=== PATIENT | male | born 1960 | race Caucasian/White ===

== ENCOUNTER 2018-12-02 08:55 | Day surgery (SDC) | payer BC ==
[~2018-12-02 08:55] MED LIST: Lactated Ringers 1,000 ML IV SCH
--- NOTE | 2018-12-02 09:44 | PCM.PREANE ---
Preanesthetic Assessment - Anesthesia/Transfusion/Family Hx Anesthesia History: Prior Anesthesia Without Reaction Family History of Anesthesia Reaction: No Transfusion History: No Prior Transfusion(s) Intubation History: Unknown - Review of Systems General: No Symptoms Pulmonary: No Symptoms Cardiovascular: No Symptoms Gastrointestinal: Abdominal Pain, Difficulty Swallowing, Hematochezia Neurological: No Symptoms Other: Reports: None - Physical Assessment NPO Status Date: 12/02/18 NPO Status Time: 06:00 O2 Sat by Pulse Oximetry: 98 Respiratory Rate: 15 Vital Signs: Last Vital Signs Temp 36.4 C 12/02/18 09:20 Pulse 57 L 12/02/18 09:20 Resp 15 12/02/18 09:20 BP 132/85 12/02/18 09:20 Pulse Ox 98 12/02/18 09:20 Height: 1.85 m Weight: 95.708 kg ASA Class: 2 Mental Status: Alert & Oriented x3 Airway Class: Mallampati = 2 Dentition: Reports: Normal Dentition Thyro-Mental Finger Breadths: 3 Mouth Opening Finger Breadths: 3 ROM/Head Extension: Full Lungs: Clear to Auscultation, Normal Respiratory Effort Cardiovascular: Regular Rate, Regular Rhythm - Allergies Allergies/Adverse Reactions: Allergies Allergy/AdvReac Type Severity Reaction Status Date / Time bee venom protein (honey bee) Allergy Anaphylactic Verified 11/29/18 08:37 Shock codeine Allergy Itching Verified 11/29/18 08:37 - Blood Blood Available: No - Anesthesia Plan Pre-Op Medication Ordered: None - Acknowledgements Anesthesia Type Planned: MAC Pt an Appropriate Candidate for the Planned Anesthesia: Yes Alternatives and Risks of Anesthesia Discussed w Pt/Guardian: Yes Pt/Guardian Understands and Agrees with Anesthesia Plan: Yes PreAnesthesia Questionnaire HEENT History: Reports: Other (See Below) Other HEENT History: wears glasses Cardiovascular History: Reports: Hypertension Respiratory History: Reports: None Gastrointestinal History: Reports: GERD, Other (See Below) Other Gastrointestinal History: hx C-diff Genitourinary History: Reports: None Musculoskeletal History: Reports: Fracture Other Musculoskeletal History: hx fx arm, collarbone, toe and finger Neurological History: Reports: None Psychiatric History: Reports: Anxiety, Depression Endocrine/Metabolic History: Reports: Hypothyroidism Hematologic History: Reports: None Immunologic History: Reports: None Oncologic (Cancer) History: Reports: None Dermatologic History: Reports: None - Past Surgical History Head Surgeries/Procedures: Reports: None HEENT Surgical History: Reports: Tonsillectomy Cardiovascular Surgical History: Reports: None Respiratory Surgical History: Reports: None GI Surgical History: Reports: None Female Surgical History: Reports: None Neurological Surgical History: Reports: None Musculoskeletal Surgical History: Reports: Shoulder Surgery Other Musculoskeletal Surgeries/Procedures:: mell shoulder surgery Oncologic Surgical History: Reports: None Dermatological Surgical History: Reports: None - SUBSTANCE USE Smoking Status *Q: Never Smoker Recreational Drug Use History: No - HOME MEDS Home Medications: Home Meds Ascorbic Acid [Vitamin C] 500 mg PO DAILY 11/29/18 [History] L.acidoph,Paracasei, B.lactis [Probiotic] 1 tab PO DAILY 11/29/18 [History] Levothyroxine Sodium [Synthroid] 150 mcg PO DAILY 11/29/18 [History] Lisinopril 20 mg PO DAILY 11/29/18 [History] Metoprolol Succinate 100 mg PO BID 11/29/18 [History] Potassium Chloride 10 meq PO DAILY 11/29/18 [History] Zolpidem Tartrate 10 mg PO BEDTIME 11/29/18 [History] hydroCHLOROthiazide [Hydrochlorothiazide] 25 mg PO DAILY 11/29/18 [History] - CURRENT (IN HOUSE) MEDS Current Meds: Current Medications Lactated Ringer's (Ringers, Lactated) 1,000 mls @ 125 mls/hr IV ASDIRECTED [facility] Last Admin: 12/02/18 09:29 Dose: 125 mls/hr
[2018-12-02] MEDS ORDERED: fentaNYL 100 MCG/2 ML SDV ONE (11:42)
[2018-12-02] MEDS ORDERED: Midazolam 1 MG/ML 2 ML SDV ONE (11:42)
[2018-12-02] MEDS ORDERED: Propofol 200 MG/20 ML SDV ONE (11:51)
--- NOTE | 2018-12-02 12:29 | PCM.OPNOTE ---
- General Post-Op/Procedure Note Date of Surgery/Procedure: 12/02/18 Operative Procedure(s): egd w bx. colonoscopy w bx Findings: see dict [id number] Pre Op Diagnosis: BRBPR Post-Op Diagnosis: Same Anesthesia Technique: Moderate Sedation Primary Surgeon: Ko Izaguirre Pathology: egd bx colon at 25 when scope coming out, hyperemic, and rectal polyp 2mm Complications: None Condition: Good
--- NOTE | 2018-12-02 13:04 | PCM48HPAN ---
Post Anesthesia Note - EVALUATION WITHIN 48HRS OF ANESTHETIC Vital Signs in Normal Range: Yes Patient Participated in Evaluation: Yes Respiratory Function Stable: Yes Airway Patent: Yes Cardiovascular Function Stable: Yes Hydration Status Stable: Yes Pain Control Satisfactory: Yes Nausea and Vomiting Control Satisfactory: Yes Mental Status Recovered: Yes Resp Rate: 12 - COMMENTS/OBSERVATIONS Free Text/Narrative:: no anesthesia problems
--- NOTE | 2018-12-02 16:21 | OR ---
SURGEON: Ko Izaguirre MD DATE OF PROCEDURE: 12/02/2018 PREOPERATIVE DIAGNOSIS: Bright red blood per rectum. POSTOPERATIVE DIAGNOSES: Esophagogastroduodenoscopy diagnosis is duodenitis and colonoscopy diagnosis is polyp and hemorrhoids. DESCRIPTION OF PROCEDURE: EGD: The patient was taken to the endoscopy room, and with the RU[employer] MACHINE OPERATOR, Diprivan was administered. A well-lubricated EGD scope was gently inserted through the oropharynx, down the esophagus, passing through the gastroesophageal junction, into the stomach. The mucosa was examined upon the passage. Any etiology will be noted. Once in the stomach, we continued to advance to the distal antrum, passed through the pylorus into the second portion of the duodenum. Again, the mucosa was examined for any abnormality and etiology. The scope was then retrieved back to the stomach and then retroflexed to look at the fundus of the stomach. If a biopsy was indicated, we will biopsy the antrum, body, and gastroesophageal junction. The air will be sucked out while the scope is retrieved to reduce the patient's discomfort. The patient tolerated the procedure well. There were no intraoperative complications. Dr. Izaguirre was present through the whole procedure. Prior to surgery, a time-out had been called, the patient identified, procedure identified and antibiotic administered. Colonoscopy: The patient was taken to the endoscopy room. A time out was called, patient identified, and procedure identified. Diprivan was then administrated. Patient went from awake to sleep, hearing doctor talking or door closing is normal. Perineum inspection and digital examination were then performed. A well-lubricated colonoscope was gently inserted through the rectum, advanced past the rectosigmoid junction, the descending colon, splenic flexure, transverse colon, hepatic flexure, ascending colon, arrived to the cecum. Cecum was identified as dictated in the finding. Then the scope was carefully withdrawn while attention was paid to the mucosal surface for any abnormality. Air will be sucked out during the scope withdrawal. At the rectum, retroflexed to examine any rectal diseases, fistula or hemorrhoids. During mucosal examination, abnormality or polyp was noted; picture taken and biopsy performed. Patient tolerated procedure well. There were no intraoperative complications, and Dr. Izaguirre was present throughout the whole procedure. FINDINGS: EGD findings: 1. The patient is easily sedated with [employer] MACHINE OPERATOR and Diprivan, the patient is soundly snoring. 2. Oropharynx and proximal esophagus are free of disease. Distal esophagus at GE junction at 40 shows mild salmon-color change, consistent with mild acid reflux. Stomach rugae normal in appearance and there is no food, blood, or bile observed. Antrum is normal in appearance. Duodenum has inflammation and consistent with duodenitis. No blood, no ulcer observed. Scope retrieved back to the stomach. Retroflexed look at the stomach, there was no hiatal hernia. Biopsy done at antrum, body, GE junction at 40 and sucked out the gas while scope coming out. Colonoscopy findings: 1. The patient is easily sedated with [employer] MACHINE OPERATOR and Diprivan, the patient is soundly snoring. 2. Bowel prep is average with large amount of opaque liquid stool and study is compromised. 3. Colon is rather straightforward. Cecum indicated by ileocecal fold, one-to- one indentation, light emittance, appendiceal orifice. Mucosa examined upon scope pulling out. The patient has moderate diverticulosis on the left colon. No signs or symptoms of diverticulitis and there is a small polyp at the rectum, 2 mm, biopsy done. Other than that, there is a small slightly elevated and hyperemic area at distant 25, and we biopsied that. The hyperemic patch is about 5 to 6 mm. Other than that, no inflammation, stricture, AV malformation, bleeding, ulceration observed. The patient has mild internal hemorrhoids, no external hemorrhoids. PLAN: The patient would benefit from repeat colonoscopy 10 years from today or if clinically indicated otherwise or if the biopsy pathology indicated otherwise. URIAH / AMA /[id number]
== END 2018-12-02 13:14 | disposition home or self-care (01) ==
LOC: MW.SDS 08:55
PROVIDERS: ATTEND Surgery
DX: K62.5 Hemorrhage of anus and rectum (principal); K29.50 Unspecified chronic gastritis without bleeding; K20.9 Esophagitis, unspecified; K62.1 Rectal polyp; K57.30 Diverticulosis of large intestine without perforation or abscess without bleeding; K64.8 Other hemorrhoids; K63.9 Disease of intestine, unspecified; I10 Essential (primary) hypertension; K21.9 Gastro-esophageal reflux disease without esophagitis; E03.9 Hypothyroidism, unspecified; Z79.890 Hormone replacement therapy; Z79.899 Other long term (current) drug therapy; Z88.5 Allergy status to narcotic agent; Z91.030 Bee allergy status
CPT/HCPCS: 43239; 45380; J2250; J2704; J3010; J7120